=== PATIENT | female | born 1940 | race Caucasian/White ===

== ENCOUNTER 2024-09-23 22:03 | Inpatient (IN) | payer MEDICARE ==
[2024-09-23] MEDS ORDERED: Glucagon 1 MG/ML KIT IM PRN (23:58)
[2024-09-23] MEDS ORDERED: Dextrose 50% Abboject 50 ML SYRINGE SLOW IVP PRN (23:58)
[2024-09-23] MEDS ORDERED: Calcium Carbonate 500 MG ChewTAB PO PRN (23:58)
[2024-09-23] MEDS ORDERED: Ondansetron PF 4 MG/2 ML Vial IVP PRN (23:58)
[2024-09-23] MEDS ORDERED: Senokot S 8.6-50 MG TAB PO PRN (23:58)
[2024-09-24 00:50] LABS: Troponin I 0.167 ng/mL (< 0.028)
[2024-09-24 07:17] LABS: Anion Gap 17 mmol/L (10-20); BUN (Urea Nitrogen) 57 mg/dL (9.8-20.1); Calc. Creatinine Clearance 32 mL/min (70-130); Calcium 8.0 mg/dL (7.8-10.44); Carbon Dioxide 17 mmol/L (23-31); Chloride 111 mmol/L (98-107); Glucose 173 mg/dL (83-110); Potassium 4.9 mmol/L (3.5-5.1); Sodium 140 mmol/L (136-145)
[2024-09-24 07:21] LABS: Troponin I 0.197 ng/mL (< 0.028)
[2024-09-24 08:05] LABS: Platelet Count 99 10x3/uL (150-450)
[2024-09-24 08:06] LABS: Hematocrit 31.7 % (34.9-44.5); Hemoglobin 10.3 g/dL (12.0-15.5); Mean Corpuscular Hemoglobin 31.3 pg (27.0-33.0); Mean Corpuscular Volume 96.4 fL (81.6-98.3); Red Blood Cell (RBC) Count 3.29 10x6/uL (3.90-5.03); White Blood Cell (WBC) Count 15.43 10x3/uL (3.5-10.5)
[2024-09-24 08:12] LABS: Anisocytosis SLIGHT = 6-15 cells (100X) (0-5/hpf); Dohle Bodies SLIGHT; MDiff Complete? YES; Ovalocytes SLIGHT = 2-5 cells (100X) (0-1/hpf); Platelet Adequacy Comment Appears Decreased
[2024-09-24] MEDS ORDERED: PILOCARPINE HCL 7.5 MG PO SCH (09:00)
[2024-09-24] MEDS: Aspirin Chewable 81 MG TAB PO SCH (09:48)
[2024-09-24] MEDS: Gabapentin 100 MG CAP PO SCH (09:48)
[2024-09-24] MEDS: Multivit, Therapeutic 1 TAB PO SCH (09:49)
[2024-09-24] MEDS: Cholecalciferol 1,000 UNITS (25 MCG) TAB PO SCH (09:49)
[2024-09-24] MEDS: Pantoprazole 40 MG DR.TAB PO SCH (09:49)
[2024-09-24] MEDS: Allopurinol 100 MG TAB PO SCH (09:49)
[2024-09-24] MEDS: Apixaban 2.5 MG TAB PO SCH (12:32)
[2024-09-24] MEDS: cefTRIAXone\\ROCEPHIN 2 GM in Sodium Chloride 0.9% 100 ML IVPB SCH (20:12)
[2024-09-24] MEDS: Lantus 1000 UNITS/10 ML VIAL SC SCH (20:12)
[2024-09-24] MEDS: dilTIAZem 25 MG/5 ML VIAL SLOW IVP SCH (20:32)
[2024-09-24] MEDS: dilTIAZem 25 MG/5 ML VIAL ONE (20:32)
[2024-09-25] MEDS: dilTIAZem 25 MG/5 ML VIAL SLOW IVP SCH ×2 (04:13→06:20)
[2024-09-25 04:14] LABS: ALT (SGPT) 25 U/L (Less than 34); AST (SGOT) 29 U/L (11-34); Albumin 2.7 g/dL (3.1-4.5); Alkaline Phosphatase 86 U/L (40-110); Anion Gap 18 mmol/L (10-20); BUN (Urea Nitrogen) 60 mg/dL (9.8-20.1); Bilirubin, Total 0.3 mg/dL (0.3-1.2); Calc. Creatinine Clearance 31 mL/min (70-130); Calcium 8.1 mg/dL (7.8-10.44); Carbon Dioxide 14 mmol/L (23-31); Chloride 111 mmol/L (98-107); Globulin 3.5 g/dL (2.4-3.5); Glucose 236 mg/dL (83-110); Potassium 4.8 mmol/L (3.5-5.1); Sodium 138 mmol/L (136-145)
[2024-09-25 04:19] LABS: Platelet Count 98 10x3/uL (150-450)
[2024-09-25 04:20] LABS: #Basophils Less than 0.03 10x3/uL (0.0-0.2); #Eosinophils Less than 0.03 10x3/uL (0.0-0.5); #Monocytes 0.72 10x3/uL (0.0-1.1); #Neutrophils 8.64 10x3/uL (1.5-8.4); %Basophils 0.2 % (0.0-2.0); %Eosinophils 0.2 % (0.0-6.0); %Lymphocytes 7.8 % (18.0-47.0); %Monocytes 6.8 % (0.0-10.0); %Neutrophils 82.1 % (40.0-75.0); Hematocrit 32.0 % (34.9-44.5); Hemoglobin 10.7 g/dL (12.0-15.5); Mean Corpuscular Hemoglobin 31.3 pg (27.0-33.0); Mean Corpuscular Volume 93.6 fL (81.6-98.3); Red Blood Cell (RBC) Count 3.42 10x6/uL (3.90-5.03); White Blood Cell (WBC) Count 10.52 10x3/uL (3.5-10.5)
[2024-09-25] MEDS: Acetaminophen 325 MG TAB PO PRN (06:20)
[2024-09-25] MEDS: Metoprolol Succinate XL 25 MG ER.TAB PO SCH (06:23)
[2024-09-25] MEDS: D3 PO SCH (19:22)
[2024-09-25] MEDS: CHONDR MSM1 PO SCH (19:22)
[2024-09-25] MEDS: MANG PO SCH (19:22)
[2024-09-25] MEDS: [UNRECOGNIZED DRUG - OTHER] PO SCH (19:22)
[2024-09-25] MEDS: GLUCOSAM PO SCH (19:22)
[2024-09-26 03:55] LABS: #Basophils 0.03 10x3/uL (0.0-0.2); #Eosinophils 0.04 10x3/uL (0.0-0.5); #Monocytes 0.72 10x3/uL (0.0-1.1); #Neutrophils 8.30 10x3/uL (1.5-8.4); %Basophils 0.3 % (0.0-2.0); %Eosinophils 0.4 % (0.0-6.0); %Lymphocytes 9.0 % (18.0-47.0); %Monocytes 7.2 % (0.0-10.0); %Neutrophils 82.7 % (40.0-75.0); Hematocrit 35.9 % (34.9-44.5); Hemoglobin 11.7 g/dL (12.0-15.5); Mean Corpuscular Hemoglobin 30.9 pg (27.0-33.0); Mean Corpuscular Volume 94.7 fL (81.6-98.3); Platelet Count 125 10x3/uL (150-450); Red Blood Cell (RBC) Count 3.79 10x6/uL (3.90-5.03); White Blood Cell (WBC) Count 10.03 10x3/uL (3.5-10.5)
[2024-09-26 04:12] LABS: ALT (SGPT) 42 U/L (Less than 34); AST (SGOT) 55 U/L (11-34); Albumin 2.7 g/dL (3.1-4.5); Alkaline Phosphatase 121 U/L (40-110); Anion Gap 17 mmol/L (10-20); BUN (Urea Nitrogen) 61 mg/dL (9.8-20.1); Bilirubin, Total 0.4 mg/dL (0.3-1.2); Calc. Creatinine Clearance 34 mL/min (70-130); Calcium 8.4 mg/dL (7.8-10.44); Carbon Dioxide 16 mmol/L (23-31); Chloride 111 mmol/L (98-107); Globulin 4.0 g/dL (2.4-3.5); Glucose 173 mg/dL (83-110); Potassium 5.0 mmol/L (3.5-5.1); Sodium 139 mmol/L (136-145)
[2024-09-27 04:56] LABS: #Basophils Less than 0.03 10x3/uL (0.0-0.2); #Eosinophils 0.14 10x3/uL (0.0-0.5); #Monocytes 0.54 10x3/uL (0.0-1.1); #Neutrophils 3.10 10x3/uL (1.5-8.4); %Basophils 0.2 % (0.0-2.0); %Eosinophils 3.0 % (0.0-6.0); %Lymphocytes 17.2 % (18.0-47.0); %Monocytes 11.7 % (0.0-10.0); %Neutrophils 67.5 % (40.0-75.0); Hematocrit 31.1 % (34.9-44.5); Hemoglobin 10.2 g/dL (12.0-15.5); Mean Corpuscular Hemoglobin 30.5 pg (27.0-33.0); Mean Corpuscular Volume 93.1 fL (81.6-98.3); Platelet Count 127 10x3/uL (150-450); Red Blood Cell (RBC) Count 3.34 10x6/uL (3.90-5.03); White Blood Cell (WBC) Count 4.60 10x3/uL (3.5-10.5)
[2024-09-27 05:17] LABS: ALT (SGPT) 61 U/L (Less than 34); AST (SGOT) 73 U/L (11-34); Albumin 2.3 g/dL (3.1-4.5); Alkaline Phosphatase 103 U/L (40-110); Anion Gap 14 mmol/L (10-20); BUN (Urea Nitrogen) 61 mg/dL (9.8-20.1); Bilirubin, Total 0.2 mg/dL (0.3-1.2); Calc. Creatinine Clearance 34 mL/min (70-130); Calcium 7.9 mg/dL (7.8-10.44); Carbon Dioxide 16 mmol/L (23-31); Chloride 112 mmol/L (98-107); Globulin 3.4 g/dL (2.4-3.5); Glucose 173 mg/dL (83-110); Potassium 4.4 mmol/L (3.5-5.1); Sodium 138 mmol/L (136-145)
[2024-09-27 05:33] VITALS: BMI 46.0
[2024-09-29 05:38] LABS: Hematocrit 32.9 % (34.9-44.5); Hemoglobin 10.6 g/dL (12.0-15.5); Mean Corpuscular Hemoglobin 29.6 pg (27.0-33.0); Mean Corpuscular Volume 91.9 fL (81.6-98.3); Platelet Count 193 10x3/uL (150-450); Red Blood Cell (RBC) Count 3.58 10x6/uL (3.90-5.03); White Blood Cell (WBC) Count 7.04 10x3/uL (3.5-10.5)
[2024-09-29 05:53] LABS: ALT (SGPT) 41 U/L (Less than 34); AST (SGOT) 61 U/L (11-34); Albumin 2.2 g/dL (3.1-4.5); Alkaline Phosphatase 103 U/L (40-110); Anion Gap 9 mmol/L (10-20); BUN (Urea Nitrogen) 42 mg/dL (9.8-20.1); Bilirubin, Total 0.4 mg/dL (0.3-1.2); Calc. Creatinine Clearance 49 mL/min (70-130); Calcium 8.7 mg/dL (7.8-10.44); Carbon Dioxide 20 mmol/L (23-31); Chloride 96 mmol/L (98-107); Globulin 3.6 g/dL (2.4-3.5); Glucose 159 mg/dL (83-110); Potassium 4.0 mmol/L (3.5-5.1); Sodium 121 mmol/L (136-145)
[2024-09-29 11:57] LABS: Anion Gap 11 mmol/L (10-20); BUN (Urea Nitrogen) 40 mg/dL (9.8-20.1); Calc. Creatinine Clearance 48 mL/min (70-130); Calcium 8.7 mg/dL (7.8-10.44); Carbon Dioxide 23 mmol/L (23-31); Chloride 111 mmol/L (98-107); Glucose 299 mg/dL (83-110); Potassium 4.9 mmol/L (3.5-5.1); Sodium 140 mmol/L (136-145)
[2024-09-29 12:30] VITALS: BP 127/70; TEMP 97.8
[2024-09-30 05:51] LABS: Calc. Creatinine Clearance 45.0 mL/min (70-130)
== END 2024-09-30 11:11 | DRG 871 ==
LOC: CSHICU 23:34 → CSHTELE 09-26 06:30
PROVIDERS: ADMIT Student in an Organized Health Care Education/Training Program; ATTEND Internal Medicine
DX: A41.51 Sepsis due to Escherichia coli [E. coli] (principal); G93.41 Metabolic encephalopathy; I48.19 Other persistent atrial fibrillation; N39.0 Urinary tract infection, site not specified; N17.9 Acute kidney failure, unspecified; I5A Non-ischemic myocardial injury (non-traumatic); I50.32 Chronic diastolic (congestive) heart failure; Z16.24 Resistance to multiple antibiotics; R65.20 Severe sepsis without septic shock; E78.5 Hyperlipidemia, unspecified; M19.90 Unspecified osteoarthritis, unspecified site; E11.22 Type 2 diabetes mellitus with diabetic chronic kidney disease; I49.5 Sick sinus syndrome; E11.42 Type 2 diabetes mellitus with diabetic polyneuropathy; E03.9 Hypothyroidism, unspecified; E11.65 Type 2 diabetes mellitus with hyperglycemia; E86.0 Dehydration; M35.00 Sjogren syndrome, unspecified; M10.9 Gout, unspecified; I12.9 Hypertensive chronic kidney disease with stage 1 through stage 4 chronic kidney disease, or unspecified chronic kidney disease; D69.59 Other secondary thrombocytopenia; D63.1 Anemia in chronic kidney disease; N18.30 Chronic kidney disease, stage 3 unspecified; Z88.0 Allergy status to penicillin; Z88.2 Allergy status to sulfonamides; Z79.899 Other long term (current) drug therapy; Z79.01 Long term (current) use of anticoagulants; Z79.890 Hormone replacement therapy; Z87.440 Personal history of urinary (tract) infections; Z98.890 Other specified postprocedural states; Z90.710 Acquired absence of both cervix and uterus; Z90.89 Acquired absence of other organs; Z79.891 Long term (current) use of opiate analgesic
CPT/HCPCS: 36415; 36416; 76770; 80048; 80053; 82550; 82565; 84443; 84484; 85025; 85027; 86140; 87040; 87077; 87186; 93005; 93010; J0696; J1335; J1815; J2185; J7120